=== PATIENT | male | born 1985 | race Caucasian/White ===

== ENCOUNTER 2019-04-16 11:36 | Emergency (ER) | payer SELFPAY, OTHER ==
[2019-04-16] MEDS: LIDOCAINE 1% (MDV) 10 ML INJ INJ (12:13)
== END 2019-04-16 13:01 | disposition home or self-care (01) ==
LOC: FTE 11:36
DX: S61.212A Laceration without foreign body of right middle finger without damage to nail, initial encounter (principal); W26.8XXA Contact with other sharp object(s), not elsewhere classified, initial encounter; Y92.9 Unspecified place or not applicable
CPT/HCPCS: 12001; 99282-25